=== PATIENT | female | born 1955 | race Two or more races ===

== ENCOUNTER 2021-11-09 19:00 | Emergency (ER) | payer OTHER, MEDICAID ==
[~2021-11-09] VITALS: Ht 165.1 cm; Wt 100.0 kg
[2021-11-09] MEDS ORDERED: HYDROcodone-ACET 5/325MG TAB PO ONE (19:45)
[2021-11-09 20:00] LABS: Basophils # (auto) 0 10 ^3/uL (0-0.2); Eosinophils # (auto) 0 10 ^3/uL (0-0.8); Eosinophils % (auto) 0.4 % (0.0-7.0)
[2021-11-09 20:02] LABS: Basophils % (auto) 0.5 % (0.0-2.0); Hematocrit 33.5 % (36.0-46.0); Hemoglobin 10.6 g/dL (12.2-16.2); Lymphocytes # (auto) 1.5 10 ^3/uL (0.4-5.4); Lymphocytes % (auto) 24.9 % (10.0-50.0); Mean Corpuscular Hemoglobin 23.3 pg (28.0-32.0); Mean Corpuscular Hgb Conc. 31.5 g/dL (32.0-36.0); Monocytes # (auto) 0.7 10 ^3/uL (0-1.3); Monocytes % (auto) 12.6 % (0.0-12.0); Neutrophils # (auto) 3.7 10 ^3/uL (1.6-8.6); Neutrophils % (auto) 61.6 % (37.0-80.0); Red Blood Cells 4.53 10^6/uL (4.0-5.20); White Blood Cell 5.9 10^3/uL (4.4-10.8)
[2021-11-09 20:06] LABS: Red Cell Distribution Width 20.3 % (11.8-14.3)
[2021-11-09 20:28] LABS: Albumin 3.8 g/dL (3.4-5.0); BUN/Creatinine Ratio 18.7; Calcium 8.6 mg/dL (8.5-10.1); Potassium 3.9 mmol/L (3.5-5.1)
[2021-11-09 20:30] LABS: Bilirubin, Total 0.3 mg/dL (0.2-1.0); Total Protein 7.7 g/dL (6.4-8.2)
[2021-11-09] MEDS ORDERED: IOHEXOL 350 MG/ML 100ML IJ ONE (21:15)
[2021-11-09] MEDS ORDERED: NITROGLYCERIN 0.4 MG SL TAB SL ONE (23:15)
[2021-11-09] MEDS ORDERED: ASPirin 81 mg TAB PO ONE (23:15)
[2021-11-10 01:25] VITALS: BP 120/74
== END 2021-11-10 01:32 | disposition home or self-care (01) ==
LOC: EDUNIT# 19:00 → ER 19:00 → EDBD 19:00 → ER 11-10 01:32
DX: R07.89 Other chest pain (principal); M54.9 Dorsalgia, unspecified; M79.603 Pain in arm, unspecified; E03.9 Hypothyroidism, unspecified; Z90.710 Acquired absence of both cervix and uterus; Z90.89 Acquired absence of other organs
CPT/HCPCS: 36415; 71045; 71275; 80053; 83735; 83880; 84484; 85025; 85379; 93005; 99285; Q9967